=== PATIENT | female | born 1985 | race Caucasian/White ===

== ENCOUNTER 2017-05-16 09:54 | Day surgery (SDC) | payer BC ==
[~2017-05-16 09:54] MED LIST: Buffered Lidocaine 0.9% SYRIN* 5 ML/SYR SYRINGE INTRADERM ONE; Dexamethasone IV* 4 MG/ML 1 ML (4 MG) IV SLOW PU ONE; Famotidine IV* 10 MG/ML 2 ML (20 mg) IV ONE
[2017-05-16] MEDS ORDERED: Buffered Lidocaine 0.9% SYRIN* 5 ML/SYR SYRINGE ONE (10:12)
[2017-05-16] MEDS ORDERED: Famotidine IV* 10 MG/ML 2 ML (20 mg) ONE (10:24)
[2017-05-16] MEDS ORDERED: Dexamethasone IV* 4 MG/ML 1 ML (4 MG) ONE (10:25)
[2017-05-16] MEDS ORDERED: Iodine Strong (LUGOL'S)* 14 ML BTL ONE (10:53)
[2017-05-16] MEDS ORDERED: Ferric Subsulfate* 8 ML BTL ONE (10:53)
[2017-05-16] MEDS ORDERED: Lidocaine 1% MPF wEPI 200,000* 30 ML SDV ONE (10:53)
[2017-05-16] MEDS ORDERED: Acetic Acid 0.25%* 250 ML BTL ONE (10:53)
[2017-05-16] MEDS ORDERED: fentaNYL* 50 MCG/ML 2 ML VIAL (100 MCG VIAL) ONE (10:56)
[2017-05-16] MEDS ORDERED: Midazolam* 1 MG/ML 2 ML VIAL (2 MG) ONE (10:57)
[2017-05-16] MEDS ORDERED: Ondansetron INJ* 2 MG/ML VIAL IV PRN (11:34)
[2017-05-16] MEDS ORDERED: fentaNYL* 50 MCG/ML 2 ML VIAL (100 MCG VIAL) IV PRN (11:34)
[2017-05-16] MEDS ORDERED: Ketorolac INJ* 30 MG/ML 1 ML VIAL IV PRN (11:34)
[2017-05-16 12:51] VITALS: BP 120/82
[2017-05-16] MEDS ORDERED: Propofol* 10 MG/ML 20 ML BTL IV PUSH ONE (13:20)
--- NOTE | 2017-05-17 01:41 | OP ---
DATE OF OPERATION: 05/16/17 - [facility] DATE OF : 87 SURGEON: Zohra Blanco MD ANESTHESIOLOGIST: David Garcia MD ANESTHESIA: Monitored anesthesia care. PRE-OP DIAGNOSES: High-grade intraepithelial lesion and severe anxiety. POST-OP DIAGNOSES: High-grade intraepithelial lesion and severe anxiety. OPERATIVE PROCEDURE: Loop electrode excision. ESTIMATED BLOOD LOSS: Minimal. FLUIDS: Crystalloid. SPECIMEN: Portion of the cervix. DESCRIPTION OF PROCEDURE: After informed consent was signed, the patient was taken to the operating room where she was given monitored anesthesia care to decrease her anxiety. She was placed in the dorsal lithotomy position in the [facility]. Colposcopic exam revealed acetowhite change around the 12 o'clock and 6 o'clock portion of the cervix. This was done first with acetic acid, then with Lugol solution. The 15 mm loop was then assembled and used to remove a portion of the cervix including the transition zone. A small portion was also taken at 12 o'clock and 6 o'clock. Specimen was all sent to pathology. Good hemostasis was found with rollerball cautery. Monsel solution was then placed in the area with excellent hemostasis. The speculum was removed from the vagina. The patient was placed back in the supine position, moved to the stretcher and taken to the recovery room in stable condition. [id number]/CPS #: [id number] MTDD
== END 2017-05-16 12:54 | disposition home or self-care (01) ==
LOC: OR 09:54
PROVIDERS: ATTEND Obstetrics & Gynecology
DX: D06.7 Carcinoma in situ of other parts of cervix (principal); F06.4 Anxiety disorder due to known physiological condition
CPT/HCPCS: 81025; 88307; A9270-GY; J1100; J2001; J2250; J2704; J3010

== ENCOUNTER 2017-07-16 08:32 | Emergency (ER) | payer BC ==
[2017-07-16 08:43] VITALS: BP 137/91
--- NOTE | 2017-07-16 09:17 | UC ---
Throat Pain/Nasal Lincoln HPI - HPI Summary HPI Summary: 32 YO FEMALE WITH SORE THROAT X 2-3 DAYS LOW GRADE TEMP MILD NASAL CONGESTION HX OF MONO - History of Current Complaint Chief Complaint: UCRespiratory Stated Complaint: SORE THROAT FEVER Time Seen by Provider: 07/16/17 09:10 Hx Obtained From: Patient Hx Last Menstrual Period: 1 week ago Onset/Duration: Gradual Onset Severity: Mild Pain Intensity: 4 Pain Scale Used: 0-10 Numeric Associated Signs & Symptoms: Positive: Nasal Discharge, Fever - Allergies/Home Medications Allergies/Adverse Reactions: Allergies Allergy/AdvReac Type Severity Reaction Status Date / Time Grapefruit Concentrate Allergy Unknown Hives Verified 05/16/17 10:32 Home Medications: Home Medications Dextromethorphan-Phenylephrine [Day-Time PE Cold/Flu Reli 10-5-325 mg] [History] Pseudoephedrine-Guaifenesin [Mucinex D 60-600 mg] 07/16/17 [History] PMH/Surg Hx/FS Hx/Imm Hx Previously Healthy: Yes - Surgical History Surgical History: Yes Surgery Procedure, Year, and Place: wisdom teeth extraction - Family History Known Family History: Positive: Hypertension - Social History Alcohol Use: Occasionally Alcohol Amount: 2 -3 on weekends Substance Use Type: None Smoking Status (MU): Never Smoked Tobacco Review of Systems Constitutional: Fever Skin: Negative Eyes: Negative ENT: Sore Throat, Nasal Discharge Respiratory: Negative Cardiovascular: Negative Gastrointestinal: Negative Genitourinary: Negative Motor: Negative Neurovascular: Negative Musculoskeletal: Negative Neurological: Negative Psychological: Negative Is Patient Immunocompromised?: No All Other Systems Reviewed And Are Negative: Yes Physical Exam Triage Information Reviewed: Yes Appearance: Well-Appearing, No Pain Distress, Well-Nourished Vital Signs: Initial Vital Signs Temp 98.6 F 07/16/17 08:33 Pulse 72 07/16/17 08:33 Resp 16 07/16/17 08:33 BP 137/91 07/16/17 08:33 Pulse Ox 100 07/16/17 08:33 Eyes: Positive: Conjunctiva Clear ENT: Positive: Hearing grossly normal, Pharyngeal erythema, Uvula midline. Negative: Tonsillar swelling, Tonsillar exudate, Trismus, Muffled voice, Hoarse voice Neck: Positive: Supple, Nontender, Enlarged Nodes @ - ANT AND POST CERV LNs Respiratory: Positive: Lungs clear, Normal breath sounds, No respiratory distress, No accessory muscle use Cardiovascular: Positive: RRR, No Murmur Musculoskeletal: Positive: ROM Intact, No Edema Neurological: Positive: Alert Psychological Exam: Normal Skin Exam: Normal Throat Pain/Nasal Course/Dx - Course Course Of Treatment: STREP (-) - Differential Dx/Diagnosis Provider Diagnoses: ACUTE PHARYNGITIS Discharge - Discharge Plan Condition: Stable Disposition: HOME Patient Education Materials: Pharyngitis (ED) Referrals: No Primary Care Phys,NOPCP [Primary Care Provider] - Additional Instructions: STREP TEST NEGATIVE REST FLUIDS TYLENOL OR ADVIL RECHECK FOR WORSENING SYMPTOMS OR IF NOT BETTER IN 4 DAYS
== END 2017-07-16 09:25 | disposition home or self-care (01) ==
LOC: UCEAST 08:32
DX: J02.9 Acute pharyngitis, unspecified (principal); Z72.89 Other problems related to lifestyle
CPT/HCPCS: 87651; 99211; G0463

== ENCOUNTER 2017-08-31 06:43 | Emergency (ER) | payer BC ==
[2017-08-31] MEDS ORDERED: NS 0.9% 1000 ML* 1,000 ML IV ONE (07:33)
--- NOTE | 2017-08-31 08:44 | RAD ---
Indication: LEFT elbow and forearm pain post fall. Comparison: No relevant prior exams available on the [facility] for comparison. Technique: AP and lateral views LEFT radius and ulna. AP, lateral, and oblique views LEFT elbow. Report: Moderate dorsal soft tissue swelling at the proximal to mid forearm. Negative for fracture about the elbow or forearm. Negative for elbow fat pad displacement to indicate effusion. IMPRESSION: No evidence for fracture or malalignment at the LEFT elbow or forearm. Moderate dorsal soft tissue swelling at the forearm.
--- NOTE | 2017-08-31 08:44 | RAD ---
Indication: LEFT elbow and forearm pain post fall. Comparison: No relevant prior exams available on the [facility] for comparison. Technique: AP and lateral views LEFT radius and ulna. AP, lateral, and oblique views LEFT elbow. Report: Moderate dorsal soft tissue swelling at the proximal to mid forearm. Negative for fracture about the elbow or forearm. Negative for elbow fat pad displacement to indicate effusion. IMPRESSION: No evidence for fracture or malalignment at the LEFT elbow or forearm. Moderate dorsal soft tissue swelling at the forearm.
[2017-08-31 09:14] VITALS: BP 108/70
--- NOTE | 2017-09-01 10:37 | ED ---
Lorelei Alfonso Edward, scribed for Myke Hayes MD on 08/31/17 at 0710 . Upper Extremity Pain - HPI Summary HPI Summary: 32 y/o female presents to the ED c/o sudden onset LUE pain at her forearm s/p fall on ice this morning. Pt states the pain is more of the "bone". The pain is aggravated with movement. Associated sx: abrasion at L forearm. Sx partial hysterectomy. - History of Current Complaint Chief Complaint: EDExtremityUpper Stated Complaint: LEFT ARM INJURY Hx Obtained From: Patient Hx Last Menstrual Period: 1 week ago Mechanism Of Injury: Fall From A Standing Position Timing: Constant Pain Location: Forearm Aggravating Factor(s): Movement Alleviating Factor(s): Nothing Associated Signs & Symptoms: Positive: Other - abrasion at L forearm - Allergies/Home Medications Allergies/Adverse Reactions: Allergies Allergy/AdvReac Type Severity Reaction Status Date / Time grapefruit Allergy Swelling Verified 08/31/17 07:53 PMH/Surg Hx/FS Hx/Imm Hx Previously Healthy: No Endocrine/Hematology History: Denies: Hx Diabetes, Hx Thyroid Disease Cardiovascular History: Denies: Hx Hypertension, Hx Pacemaker/ICD, Other Cardiovascular Problems/ Disorders Respiratory History: Denies: Hx Asthma, Hx Chronic Obstructive Pulmonary Disease (COPD), Other Respiratory Problems/Disorders GI History: Denies: Hx Ulcer, Other GI Disorders History: Denies: Hx Dialysis, Hx Renal Disease Musculoskeletal History: Denies: Other Musculoskeletal History Sensory History: Reports: Hx Contacts or Glasses - glasses and contacts Denies: Hx Hearing Aid Opthamlomology History: Reports: Hx Contacts or Glasses - glasses and contacts Neurological History: Reports: 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, goes to [place] q year Denies: Other Neuro Impairments/Disorders Psychiatric History: Reports: Hx Depression - patient states she is going to during surgery Denies: Hx Panic Disorder - Surgical History Surgery Procedure, Year, and Place: wisdom teeth extraction Hx Anesthesia Reactions: No Infectious Disease History: No Infectious Disease History: Denies: Hx Clostridium Difficile, Hx Hepatitis, Hx Human Immunodeficiency Virus (HIV), Hx of Known/Suspected MRSA, Hx Shingles, Hx Tuberculosis, Hx Known/ Suspected VRE, Hx Known/Suspected VRSA, History Other Infectious Disease, Traveled Outside the in Last 30 Days - Family History Known Family History: Positive: Hypertension - Social History Alcohol Use: Occasionally Alcohol Amount: 2 -3 on weekends Hx Substance Use: No Substance Use Type: Reports: None Hx Tobacco Use: No Smoking Status (MU): Never Smoked Tobacco Review of Systems Constitutional: Negative Eyes: Negative ENT: Negative Cardiovascular: Negative Respiratory: Negative Gastrointestinal: Negative Genitourinary: Negative Positive: Arthralgia - LUE pain Positive: Other - abrasion at LUE Neurological: Negative Psychological: Normal All Other Systems Reviewed And Are Negative: Yes Physical Exam - Summary Physical Exam Summary: VITAL SIGNS: Reviewed. GENERAL: Patient is a well-developed and nourished female who is lying comfortable in the stretcher. Patient is not in any acute respiratory distress. HEAD AND FACE: No signs of trauma. No ecchymosis, hematomas or skull depressions. No sinus tenderness. EYES: PERRLA, EOMI x 2, No injected conjunctiva, no nystagmus. EARS: Hearing grossly intact. Ear canals and tympanic membranes are within normal limits. MOUTH: Oropharynx within normal limits. NECK: Supple, trachea is midline, no adenopathy, no JVD, no carotid bruit, no c- spine tenderness, neck with full ROM. CHEST: Symmetric, no tenderness at palpation LUNGS: Clear to auscultation bilaterally. No wheezing or crackles. CVS: Regular rate and rhythm, S1 and S2 present, no murmurs or gallops appreciated. ABDOMEN: Soft, non-tender. No signs of distention. No rebound no guarding, and no masses palpated. Bowel sounds are normal. EXTREMITIES:Abrasion @ L forearm with some swelling, TTP. L elbow and wrist full ROM with good capillary refill. NEURO: Alert and oriented x 3. No acute neurological deficits. Speech is normal and follows commands. SKIN: Dry and warm. Triage Information Reviewed: Yes Vital Signs On Initial Exam: Initial Vitals Temp Pulse Resp BP Pulse Ox 98.2 F 76 16 134/87 99 08/31/17 06:45 08/31/17 06:45 08/31/17 06:45 08/31/17 06:45 08/31/17 06:45 Vital Signs Reviewed: Yes Diagnostics - Vital Signs Vital Signs Temp Pulse Resp BP Pulse Ox 08/31/17 06:45 98.2 F 76 16 134/87 99 - Laboratory Lab Statement: Any lab studies that have been ordered have been reviewed, and results considered in the medical decision making process. - Radiology L FOREARM XR Xray Interpretation: Positive (See Comments) - No evidence for fracture or malalignment at the LEFT elbow or forearm. Moderate dorsal soft tissue swelling at the forearm. Radiology Interpretation Completed By: Radiologist - ED PHYSICIAN REVIES AND AGREES L ELBOW XR Xray Interpretation: Positive (See Comments) - No evidence for fracture or malalignment at the LEFT elbow or forearm. Moderate dorsal soft tissue swelling at the forearm. Radiology Interpretation Completed By: Radiologist - ED PHYSICIAN REVIEWS AND AGREES Re-Evaluation - Re-Evaluation 1 Re-Evaluation Time: 08:50 Comment: Discuss XR results Course/Dx - Course Assessment/Plan: 32 y/o female presents to the ED c/o sudden onset LUE pain at her forearm s/p fall on ice this morning. Pt states the pain is more of the "bone". The pain is aggravated with movement. Associated sx: abrasion at L forearm. Sx partial hysterectomy. FOREARM and ELBOW XR SHOWS No evidence for fracture or malalignment at the LEFT elbow or forearm.Moderate dorsal soft tissue swelling at the forearm. Pt declined tetanus booster. Pt will be d/c home to f/u with PCP. - Diagnoses Differential Diagnosis/HQI/PQRI: Positive: Bursitis, Contusion, Fracture (Closed ), Hematoma, Strain, Sprain Provider Diagnoses: Left elbow contusion, Contusion of left forearm Discharge - Discharge Plan Condition: Stable Disposition: HOME Patient Education Materials: Contusion in Adults (ED) Referrals: [facility] [place] [facility] REFERRAL [Outside] - 4 Days (PLEASE F/U IN 3-5 DAYS) The documentation as recorded by the Lorelei borrero Edward accurately reflects the service I personally performed and the decisions made by Freddy caraballo Walter, MD.
== END 2017-08-31 09:12 | disposition home or self-care (01) ==
LOC: ED 06:43
DX: S50.02XA Contusion of left elbow, initial encounter (principal); S50.12XA Contusion of left forearm, initial encounter; W00.0XXA Fall on same level due to ice and snow, initial encounter; Y92.89 Other specified places as the place of occurrence of the external cause
CPT/HCPCS: 99282

== ENCOUNTER 2018-08-13 08:50 | Emergency (ER) | payer BC ==
[2018-08-13 09:08] VITALS: BP 126/91
--- NOTE | 2018-08-13 10:03 | UC ---
Throat Pain/Nasal Lincoln HPI - HPI Summary HPI Summary: 33-year-old woman comes in to clinic with a chief complaint of runny nose sinus pressure and dizziness for 5 days. Also having ear pain. DayQuil and NyQuil nothing really seems to be helping. No cough or chest congestion. - History of Current Complaint Chief Complaint: UCRespiratory Stated Complaint: SINIS AND SORE THROAT Time Seen by Provider: 08/13/18 09:54 Hx Last Menstrual Period: 08/10/18 Pain Intensity: 6 - Allergies/Home Medications Allergies/Adverse Reactions: Allergies Allergy/AdvReac Type Severity Reaction Status Date / Time grapefruit Allergy Swelling Verified 08/13/18 09:04 Home Medications: Home Medications Ethinyl Estradiol/Drospirenone [Gianvi 3 mg-0.02 mg Tablet] 1 tab PO DAILY 08/13 [History Confirmed 08/13/18] lamoTRIgine TAB(*) [Lamictal TAB(*)] 100 mg PO DAILY 08/13/18 [History Confirmed 08/13/18] PMH/Surg Hx/FS Hx/Imm Hx Previously Healthy: Yes Neurological History: Seizures - Surgical History Surgical History: Yes Surgery Procedure, Year, and Place: wisdom teeth extraction - Family History Known Family History: Positive: Hypertension - Social History Alcohol Use: Occasionally Alcohol Amount: 2 -3 on weekends Substance Use Type: None Smoking Status (MU): Never Smoked Tobacco Review of Systems All Other Systems Reviewed And Are Negative: Yes Constitutional: Positive: Other - dizziness Skin: Positive: Negative Eyes: Positive: Negative ENT: Positive: Sore Throat, Ear Ache, Nasal Discharge, Sinus Congestion, Sinus Pain/Tenderness Respiratory: Positive: Negative Cardiovascular: Positive: Negative Gastrointestinal: Positive: Negative Motor: Positive: Negative Neurovascular: Positive: Negative Musculoskeletal: Positive: Negative Neurological: Positive: Negative Psychological: Positive: Negative Is Patient Immunocompromised?: No Physical Exam Triage Information Reviewed: Yes Appearance: No Pain Distress, Well-Nourished, Ill-Appearing - mild Vital Signs: Initial Vital Signs Temp 99.9 F 08/13/18 09:01 Pulse 97 08/13/18 09:01 Resp 17 08/13/18 09:01 BP 126/91 08/13/18 09:01 Pulse Ox 98 08/13/18 09:01 Vital Signs Reviewed: Yes Eye Exam: Normal Eyes: Positive: Conjunctiva Clear ENT: Positive: Pharyngeal erythema, Nasal congestion, Nasal drainage, TM bulging - b/l Neck exam: Normal Neck: Positive: Supple Respiratory: Positive: Lungs clear, Normal breath sounds, No respiratory distress Cardiovascular: Positive: RRR Musculoskeletal Exam: Normal Musculoskeletal: Positive: Strength Intact, ROM Intact Neurological Exam: Normal Neurological: Positive: Alert, Muscle Tone Normal Psychological Exam: Normal Psychological: Positive: Normal Response To Family, Age Appropriate Behavior Skin Exam: Normal Throat Pain/Nasal Course/Dx - Course Course Of Treatment: DISCUSSED VIRAL VERSES BACTERIAL INFECTION AND THE ROLE OF ANTIBIOTICS. THE PATIENT WISHES TO BE ON ANTIBIOTIC AT THIS TIME. - Differential Dx/Diagnosis Provider Diagnosis: Sinusitis, Serous otitis media Discharge - Sign-Out/Discharge Documenting (check all that apply): Patient Departure All imaging exams completed and their final reports reviewed: No Studies - Discharge Plan Condition: Stable Disposition: HOME Prescriptions: Amoxicillin/Clavulanate TAB* [Augmentin TAB 875*] 875 mg PO BID #20 tab Patient Education Materials: Sinusitis (ED) Referrals: [facility] [place] [place] [Outside] Additional Instructions: FOLLOW UP WITH YOUR DOCTOR IF NOT COMPLETELY IMPROVED. GET RECHECKED FOR ANY WORSENING OF YOUR CONDITION OR QUESTIONS OR CONCERNS. - Billing Disposition and Condition Condition: STABLE Disposition: Home
== END 2018-08-13 10:05 | disposition home or self-care (01) ==
LOC: UCEAST 08:50
DX: J32.9 Chronic sinusitis, unspecified (principal); H65.93 Unspecified nonsuppurative otitis media, bilateral
CPT/HCPCS: 99212; G0463